=== PATIENT | male | born 2000 | race Hispanic/Latino ===

== ENCOUNTER 2022-03-04 12:05 | Emergency (ER) | payer OTHER, SELFPAY ==
--- NOTE | 2022-03-04 12:08 | ED.SKABFB ---
HPI - Skin/Abscess/Foreign Bdy General Chief complaint: Skin/Abscess/Foreign Body Stated complaint: tick bite Time Seen by Provider: 03/04/22 12:08 Source: patient Mode of arrival: ambulatory Limitations: no limitations History of Present Illness HPI narrative: Mr. Roberts is a 21-year-old male patient presenting to the clinic today with complaints of possible tick bite. He reports he noticed a tick bite approximately 7 days ago. He removed it at that time and stated that he thinks it may have been attached for 2 days prior to removal. He does not know if he got the mouth of the tick out. He reports having a red itchy rash to his right chest wall. He denies any fever, chills, or joint pain. Related Data Allergies Allergy/AdvReac Type Severity Reaction Status Date / Time No Known Allergies Allergy Verified 03/04/22 12:27 Review of Systems Review of Systems: Pertinent positives per HPI. Patient denies any fever, chills, headache, visual changes, dizziness, cough, runny nose, sore throat, shortness of breath, chest pain, palpitations, nausea, vomiting, diarrhea, constipation, abdominal pain, or any urinary issues. PMFSH Comments At the time of my signature, I reviewed and agree with the nursing past medical, surgical, social, and family history. There is no relevant family history pertinent to the patient complaint. Exam Narrative: General: Well-developed, well nourished, in no apparent distress Head: Normocephalic, atraumatic. Cardio: Regular rate and rhythm, s1 and s2 normal, no murmur appreciated. Resp: Clear to auscultation bilaterally, no rhonchi, rales, wheezing or rubs. Integumentary: Saline, warm, and dry, quarter sized red mildly raised bull's-eye rash to the right chest wall just lateral of the areola. Course Course Emergency Course: Portions of this record may have been created with voice recognition software. Level of Care: Express Care Visit Vital Signs Vital signs: Vital signs reviewed MDM - Skin/Abscess/Foreign Bdy MDM Narrative Medical decision making narrative: At the time of visit patient is resting comfortably on the exam table. He has a red mild indurated bull's-eye rash without evidence of retained foreign body. I will go ahead and place him on a course of doxycycline 200 mg p.o. as a prophylactic. He he voiced understanding of discharge instructions and agrees to the treatment plan. Differential Diagnosis Differential diagnosis: Likely abscess of skin or subcutaneous tissue, viral exanthem, cellulitis, insect bites, contact dermatitis and other (Retained foreign body) Discharge Plan Discharge Clinical Impression: Tick bite of chest wall Qualifiers: Encounter type: initial encounter Laterality: right Qualified Code(s): S20.361A - Insect bite (nonvenomous) of right front wall of thorax, initial encounter Patient Disposition: Home, Self-Care Condition: Stable Instructions: Antibiotic Form, Insect Bite or Sting (ED), Tick Bite (ED) Additional Instructions: Doxycycline as prescribed May take Tylenol/Motrin as needed for pain or fever May take Benadryl as needed for itching Watch for signs and symptoms of infection-redness, swelling, purulent drainage, increasing pain, or streaking. Follow-up with your PCP in 3 to 5 days if symptoms persist or sooner if they worsen. Prescriptions: New doxycycline hyclate 100 mg capsule 200 mg PO ONCE 1 Days Qty: 2 0RF Follow-up/Referrals: PHYSICIAN,VISE HAND [Primary Care Provider] - Time of Disposition: 12:29 Quality NIHSS Nursing Documentation ED NIHSS nursing documentation: reviewed/agree
[2022-03-04 12:23] VITALS: BP 130/74; PULSE 66; RESP 16; TEMP 36.2; O2SAT 100
== END 2022-03-04 12:31 | disposition home or self-care (01) ==
PROVIDERS: Emergency Provider Nurse Practitioner Family
DX: S20.361A Insect bite (nonvenomous) of right front wall of thorax, initial encounter (principal)
CPT/HCPCS: 99203; G0463

== ENCOUNTER 2023-09-28 11:45 | Emergency (ER) | payer BC, SELFPAY ==
[2023-09-28 12:09] VITALS: BP 112/68; PULSE 87; RESP 16; TEMP 36.9; O2SAT 99
--- NOTE | 2023-09-28 12:14 | ED.URI ---
HPI - URI/Sore Throat General Chief Complaint: Upper Respiratory Infection Stated Complaint: Sore Throat Time Seen by Provider: 09/28/23 12:10 Source: patient Mode of arrival: ambulatory Limitations: no limitations History of Present Illness HPI Narrative: Rainer is a 23-year-old male patient presenting to clinic today with complaints of a sore throat for the past few days also reports cough and runny nose. Denies any known fever chills. Reports that this is bothering his sleep pattern as he snores a lot. MD elicited complaint: cough, sore throat and nasal congestion Related Data Allergies Allergy/AdvReac Type Severity Reaction Status Date / Time No Known Allergies Allergy Verified 09/28/23 12:13 Review of Systems Review of Systems: Pertinent positives per HPI. Patient denies any fever, chills, rash, headache, visual changes, dizziness, shortness of breath, chest pain, palpitations, nausea, vomiting, diarrhea, constipation, abdominal pain, or any urinary issues. PMFSH Comments At the time of my signature, I reviewed and agree with the nursing past medical, surgical, social, and family history. There is no relevant family history pertinent to the patient complaint. Exam Narrative: General: Well-developed, well nourished, in no apparent distress Head: Normocephalic, atraumatic Eyes: Pupils equally round and reactive to light bilaterally, EOM intact, sclera and conjunctive clear, no discharge, lids normal Ears: TMs intact and congestion, ear canals clear, no drainage, grossly hearing normal. Nose: Nares patent, clear nasal discharge, no inflammation, no sinus tenderness. Mouth: Oral pharynx red without lesions or masses, good dentition, MMM. Neck: Supple, trachea midline, no enlargement of anterior or posterior cervical nodes, no thyroid masses or goiter palpable. Cardio: Regular rate and rhythm, s1 and s2 normal, no murmur appreciated. Resp: Clear to auscultation bilaterally, no rhonchi, rales, wheezing or rubs Course Course Emergency Course: Portions of this record may have been created with voice recognition software. Level of Care: Express Care Visit Vital Signs Vital signs: Vital Signs Temperature 36.9 C 09/28/23 12:09 Pulse Rate 87 09/28/23 12:09 Respiratory Rate 16 09/28/23 12:09 Blood Pressure 112/68 09/28/23 12:09 Pulse Oximetry 99 09/28/23 12:09 Temperature 36.9 C 09/28/23 12:09 Pulse Rate 87 09/28/23 12:09 Respiratory Rate 16 09/28/23 12:09 Blood Pressure 112/68 09/28/23 12:09 Pulse Oximetry 99 09/28/23 12:09 Vital signs reviewed MDM - URI/Sore Throat MDM Narrative Medical decision making narrative: At the time of visit patient is resting comfortably on the exam table. Patient appears to be nontoxic. Strep test was performed and negative. We will send for culture. Will send in prescription for prednisone to help with congestion and swelling of throat. Supportive measures were discussed with the patient and they voiced understanding discharge instructions and agrees to treatment plan. Return precautions reviewed Differential Diagnosis Differential diagnosis: Likely upper respiratory infection, otitis media, sinusitis, viral infection, bronchitis, influenza, pharyngitis and other (COVID) Discharge Plan Discharge Clinical Impression: Viral infection Upper respiratory infection Qualifiers: URI type: unspecified URI Qualified Code(s): J06.9 - Acute upper respiratory infection, unspecified Pharyngitis Qualifiers: Pharyngitis/tonsillitis etiology: unspecified etiology Qualified Code(s): J02.9 - Acute pharyngitis, unspecified Patient Disposition: Home, Self-Care Condition: Stable Instructions: Antibiotic Form, Pharyngitis (ED), Viral Syndrome (ED), Cold Symptoms (ED) Additional Instructions: Strep test was negative in the clinic today. We will send strep for culture if this comes back positive we will contact you in place you on a
== END 2023-09-28 12:26 | disposition home or self-care (01) ==
PROVIDERS: Emergency Provider Nurse Practitioner Family
DX: J06.9 Acute upper respiratory infection, unspecified (principal); J02.9 Acute pharyngitis, unspecified
CPT/HCPCS: 87081; 87880; 99213; G0463